=== PATIENT | male | born 1980 | race Caucasian/White ===

== ENCOUNTER 2016-08-19 10:15 | Day surgery (SDC) | payer OTHER ==
[2016-08-19] VITALS (16 sets, daily range): BP systolic 96–133; BP diastolic 58–88; PULSE 60–95; RESP 11–23; Ht 182.9 cm; Wt 81.6 kg
[~2016-08-19] VITALS: Ht 182.9 cm; Wt 81.6 kg
[~2016-08-19 10:15] MED LIST: CEFAZOLIN 1 GM INJ ONE
[2016-08-19 11:22] LABS: ADD SCAN DIFF NO
[2016-08-19 11:24] LABS: BASOPHILS % 0.4 % (0.0-2.0); EOSINOPHILS # 0.1 10^3/ul (0.0-0.5); EOSINOPHILS % 2.6 % (0.0-7.0); HEMOGLOBIN 15.8 g/dl (14.0-18.0); LYMPHOCYTES # 1.6 10^3/ul (0.8-2.9); LYMPHOCYTES % 34.2 % (15.0-51.0); MEAN CORPUSCULAR HGB CONC 32.9 g/dl (32.0-37.0); MEAN CORPUSCULAR VOLUME 85.1 fl (82.0-101.0); MEAN PLATELET VOLUME 11.5 fl (7.4-10.4); MONOCYTE # 0.4 10^3/ul (0.3-0.9); MONOCYTES % 9.3 % (0.0-11.0); NEUTROPHIL # 2.5 10^3/ul (1.6-7.5); NEUTROPHILS % 53.3 % (39.0-77.0); PLATELET COUNT 171 10^3/UL (140-415); RED BLOOD COUNT 5.64 10^6/ul (4.70-6.10); RED CELL DISTRIBUTION WIDTH 12.2 % (11.5-14.5); WHITE BLOOD COUNT 4.6 10^3/ul (4.8-10.8)
[2016-08-19 11:46] LABS: INR 1.05; PROTIME 13.7 Sec (12.2-14.2); PT RATIO 1.1
[2016-08-19 11:47] LABS: ALBUMIN 4.8 g/dl (3.3-4.9); ALBUMIN/GLOBULIN RATIO 2.18; PARTIAL THROMBOPLASTIN TIME 30.2 Sec (25.0-35.0)
[2016-08-19] MEDS ORDERED: PROPOFOL 20 ML ONE ×2 (12:02→12:43)
[2016-08-19] MEDS ORDERED: MIDAZOLAM 1 MG/ML 2 ML INJ ONE (12:02)
[2016-08-19] MEDS ORDERED: METOCLOPRAMIDE 10 MG INJ ONE (12:02)
[2016-08-19] MEDS ORDERED: FENTAnyl 50 MCG/ML VIAL ONE (12:02)
[2016-08-19 12:03] LABS: CALCIUM 9.1 mg/dl (8.4-10.2); CREATININE 0.89 mg/dl (0.61-1.24)
--- NOTE | 2016-08-19 12:03 | HP ---
DATE OF ADMISSION: 08/19/2016 HISTORY OF PRESENT ILLNESS: Nasima Butler is a 36-year-old male with a 12 x 13 right renal pelvic stone with mild hydronephrosis and urothelial thickening. The stone is noted to be radiodense. He has been having right flank pain and presents for cystoscopy, right retrograde pyelogram, insertion right ureteral stent, first stage right extracorporeal shockwave lithotripsy. Alternative options including observation, ureteroscopy, percutaneous nephrolithotripsy, nephrolithotomy, staged interve ntion and ESWL were reviewed. He in addition understands that more than 1 procedure will be require d and that a stent will be placed and subsequently removed. Timely removal of the stent, so as to a void encrustation, infection and complications were discussed. Additionally, we have discussed the potential complications of surgery today including pain, infection, obstruction, secondary procedure , anesthetic risks including but not limited to DVT, PE, ME, stroke, and blood clot formation. Octaviano tional complications from the surgery including, but not limited to renal infarction, loss of kidney , hematoma, hematuria, damage to the kidney and the surrounding organs, long-term high blood pressur e and diabetes have all been discussed. After previously discussing all of his options and question s, he would like to proceed with the above approach. PAST MEDICAL HISTORY: Nephrolithiasis. PAST SURGICAL HISTORY: None. FAMILY HISTORY: Mother has kidney stones. SOCIAL HISTORY: Does not smoke, positive social alcohol. ALLERGIES: NO KNOWN DRUG ALLERGIES. CURRENT MEDICATIONS: None. PHYSICAL EXAMINATION: LUNGS: Good breath sounds bilaterally. HEART: Regular rate and rhythm. ABDOMEN: Soft, nondistended, nontender. EXTREMITIES: ____, no CVA tenderness, no masses. IMPRESSION: A 12 x 13 right renal pelvic stone with moderate hydronephrosis and secondary urotheli al thickening. PLAN: Cystoscopy, right retrograde pyelogram, insertion of stent, then first stage right extracorpo real shockwave lithotripsy. How the procedure is performed, potential complications and side effects were reviewed. All questions answered. He would like to proceed. This is a well-informed decisio n. Dictated By: BENNIE GREER/NTS Conf#: [id number] DID#: [id number] CC: BENNIE ROJAS MD;*[facility]*
[2016-08-19] MEDS ORDERED: IOHEXOL 300MG/ML 30 ML BTL ONE (12:11)
[2016-08-19 12:12] LABS: POTASSIUM 3.8 mmol/L (3.5-5.1)
[2016-08-19] MEDS ORDERED: IOHEXOL 300MG/ML 30 ML BTL INJ ONE (12:34)
[2016-08-19] MEDS ORDERED: FUROSEMIDE 20 MG INJ ONE (12:46)
[2016-08-19] MEDS ORDERED: ACETAMINOPHEN 1000MG/100ML IV 100 ML ONE (12:56)
[2016-08-19] MEDS ORDERED: KETOROLAC 30 MG INJ ONE (12:56)
[2016-08-19] MEDS ORDERED: MEPERIDINE 25 MG INJ IV PRN (13:00)
[2016-08-19] MEDS ORDERED: DIPHENHYDRAMINE 50 MG INJ IV PRN (13:00)
[2016-08-19] MEDS ORDERED: ONDANSETRON 4 MG INJ IV PRN (13:00)
[2016-08-19] MEDS ORDERED: METOCLOPRAMIDE 10 MG INJ IV PRN (13:00)
[2016-08-19] MEDS ORDERED: HYDROmorphONE (0.2 MG/ML) 10ML SYG IV PRN ×3 (13:00)
[2016-08-19] MEDS ORDERED: OXYCODONE/ACETAMINOPHEN (5/325) TAB PO PRN ×2 (13:00)
--- NOTE | 2016-08-19 13:26 | PDOCDIS ---
Discharge Instructions CONDITION Patient Condition: Good HOME CARE INSTRUCTIONS: Diet Instructions: Regular ACTIVITY: Activity Restrictions: Slowly Increase Activity FOLLOW UP/APPOINTMENTS Appointments 2 weeks, patient to call office for date and time REFERRALS Other Referrals none OTHER ORDERS: Other Orders: dc to home when awake and stable. does not need to void before discharge SCHOOL/WORK RELEASE May return to School/Work on: Aug 23, 2016 BENNIE ROJAS Aug 19, 2016 13:26
--- NOTE | 2016-08-19 13:56 | OPR ---
DATE OF OPERATION: 08/19/2016 HISTORY: Nasima Butler is a 36-year-old male with a 12 x 13 mm right renal pelvic stone associate d with right flank pain, requesting staged right extracorporeal shock wave lithotripsy with stent. The procedure, alternative, options, pre and postoperative course, importance of timely removal or e xchange of a stent, what encrustation of a stent entails and the potential for secondary as well as additional procedures were reviewed. The pros and cons of all modalities were discussed and he elec christiano to proceed with the above plan PREOPERATIVE DIAGNOSIS: Right renal calculi. POSTOPERATIVE DIAGNOSIS: Right renal calculi. PROCEDURE PERFORMED: Right extracorporeal shock wave lithotripsy, right retrograde pyelogram, inser tion right ureteral stent. SURGEON: Bennie Negrete MD ANESTHESIA: General. DESCRIPTION OF PROCEDURE: The patient was brought into the operating room and placed on the hike lithotripter. He was prepped and draped in usual fashion after anesthesia was induced. A t imeout was undertaken. He received preoperative antibiotic therapy and sequential compression devic es were applied. Fluoroscopy was obtained which demonstrated 12 x 13 radiodense stone overlying the right renal fossa. Rigid cystoscopy was undertaken with a 12-degree, 30-degree and 70-degree angle lens. No abnormalities of the anterior, posterior urethra could be appreciated. The bladder was i nspected in a systematic fashion. No foreign body, bladder stone or tumor could be noted. Bilatera l ureteral orifices were within normal limits. A 5-Egyptian open-ended catheter was advanced up into the level of the upper pole where retrograde dorie logram was undertaken demonstrating the catheter was within the collecting system. A wire was place d up into the upper pole, which then allowed for a 28 cm 6-Egyptian double-J ureteral stent to be inse rted. The proximal aspect coiling within the renal pelvis and the distal aspect coiling within the bladder. The coil encompassed the stone. Proper position was confirmed with direct vision fluorosc opy and a KUB. A tapered string was attached to the distal end of the stent. The cystoscope was th en removed. The patient was repositioned, which allowed for right extracorporeal shock wave lithotripsy with ini tial energy setting of 1, which was progressively increased to 7, a pause was taken at 2 minut es. A total of 2400 shocks were delivered with intermittent fluoroscopy being utilized in the AP an d lateral projection. Additionally, the patient was repositioned so that the stone burden would rem ain in the proper focal point. He tolerated the procedure well. At the end of procedure, excellent fragmentation was noted. There were no noted complications. He returned to the recovery room in stable condition and discharged to home on Pyridium 200 mg p.o. t.i.d. p.r.n., dispense #30, 1 refill, Bactrim-DS 1 tab p.o. b.i.d. for 3 days' time, and [place] 5 one to two tabs p.o. q.6h, dispense #40, no refill. He will follow up in the office in 2 weeks' t jonna at which point a KUB with obliques will be obtained for possible then stent removal versus stage d intervention. Importance of followup additionally reviewed. Dictated By: BENNIE GREER/YUSRA Conf#: [id number] DID#: [id number]
== END 2016-08-19 15:33 | disposition home or self-care (01) ==
LOC: SDS 10:15
PROVIDERS: ATTEND Urology
DX: N20.0 Calculus of kidney (principal)
CPT/HCPCS: 50590; 80053; 85025; 85610; 85651; 85730; C2617; J0131; J0690; J1170; J1885; J1940; J2250; J2405; J2765; J3010; Q9967; Z7512; Z7610

== ENCOUNTER 2016-09-01 05:11 | Emergency (ER) | payer OTHER ==
[~2016-09-01] VITALS: Ht 170.2 cm; Wt 83.5 kg
[2016-09-01 05:17] VITALS: Ht 170.2 cm; Wt 83.5 kg
[2016-09-01] MEDS ORDERED: SOD CHLORIDE 0.9% 1,000 ML IV STA (05:30)
[2016-09-01] MEDS ORDERED: morphine 4 MG/ML VIAL IV STA ×3 (05:30→11:15)
[2016-09-01] MEDS ORDERED: ONDANSETRON 4 MG INJ IV STA (05:30)
[2016-09-01 05:50] VITALS: TEMP 98.1
[2016-09-01 06:04] LABS: ADD SCAN DIFF NO
[2016-09-01 06:09] LABS: BASOPHILS % 0.4 % (0.0-2.0); EOSINOPHILS # 0.3 10^3/ul (0.0-0.5); EOSINOPHILS % 3.8 % (0.0-7.0); HEMATOCRIT 44.8 % (42.0-52.0); HEMOGLOBIN 15.1 g/dl (14.0-18.0); LYMPHOCYTES # 2.6 10^3/ul (0.8-2.9); LYMPHOCYTES % 37.6 % (15.0-51.0); MEAN CORPUSCULAR HEMOGLOBIN 28.9 pg (29.0-33.0); MEAN CORPUSCULAR HGB CONC 33.7 g/dl (32.0-37.0); MEAN CORPUSCULAR VOLUME 85.8 fl (82.0-101.0); MEAN PLATELET VOLUME 11.4 fl (7.4-10.4); MONOCYTE # 0.6 10^3/ul (0.3-0.9); MONOCYTES % 8.5 % (0.0-11.0); NEUTROPHIL # 3.4 10^3/ul (1.6-7.5); NEUTROPHILS % 49.4 % (39.0-77.0); PLATELET COUNT 230 10^3/UL (140-415); RED BLOOD COUNT 5.22 10^6/ul (4.70-6.10); RED CELL DISTRIBUTION WIDTH 12.1 % (11.5-14.5); WHITE BLOOD COUNT 6.8 10^3/ul (4.8-10.8)
[2016-09-01 06:34] LABS: ADD UMIC YES; URINE BILIRUBIN (Dip) 1+ (NEGATIVE); URINE BLOOD (Dip) 3+ (NEGATIVE); URINE COLOR AMBER (YELLOW); URINE GLUCOSE (Dip) NEGATIVE (NEGATIVE); URINE KETONES (Dip) NEGATIVE (NEGATIVE); URINE LEUKOCYTE ESTERASE (Dip) 2+ (NEGATIVE); URINE NITRITE (Dip) POSITIVE (NEGATIVE); URINE TOTAL PROTEIN (Dip) 4+ (NEGATIVE); URINE UROBILINOGEN (Dip) 2.0 E.U./dL (0.1-1.0)
[2016-09-01 06:40] LABS: ALBUMIN 4.5 g/dl (3.3-4.9); ALBUMIN/GLOBULIN RATIO 1.95; BILIRUBIN,INDIRECT 0.4 mg/dl (0-1.1); BILIRUBIN,TOTAL 0.4 mg/dl (0.2-1.3); CALCIUM 9.2 mg/dl (8.4-10.2); CREATININE 1.1 mg/dl (0.61-1.24); POTASSIUM 3.9 mmol/L (3.5-5.1); TOTAL PROTEIN 6.8 g/dl (6.1-8.1)
[2016-09-01 07:02] LABS: ICTOTEST POSITIVE (NEGATIVE); URINE RBCS >200 /HPF (0)
[2016-09-01 07:03] LABS: BACTERIA,URINE OCCASIONAL
--- NOTE | 2016-09-01 08:01 | RADRPT ---
PROCEDURE: Retroperitoneal US. CLINICAL INDICATION: Flank pain TECHNIQUE: Multiple sonographic images of the kidneys and retroperitoneum were obtained. The imag es were reviewed on a PACS workstation. COMPARISON: No prior studies are available for comparison. FINDINGS: The kidneys are normal in size, contour, cortical thickness and cortical echogenicity. The right kidney measures 10.3 cm. The left kidney measures 10.8 cm. There is a 5 mm stone in the right kidney. There is mild right-sided hydronephrosis. There is a stent within the urinary bladder. RPTAT: AA IMPRESSION: Mild right-sided hydronephrosis. 5 mm stone in the right kidney. .Brennen Buenrostro MD, Date Time Electronically viewed and signed by .Brennen Buenrostro MD, MD on 09/01/2016 08:01 .S/
[2016-09-01] MEDS ORDERED: HYDR-906 PO (08:32)
--- NOTE | 2016-09-01 09:14 | RADRPT ---
PROCEDURE: XR Abdomen. CLINICAL INDICATION: Right pelvic pain TECHNIQUE: 4 views of the abdomen are available for review, including bilateral obliques. COMPARISON: None. FINDINGS: Right ureteral stent is identified in normal position. No gross evidence of urinary calculus is tai ntified. Moderate retained fecal material is suggestive of constipation. There is no evidence of b owel obstruction. The osseous structures are unremarkable. IMPRESSION: 1. Right ureteral stent is identified in normal position. No gross evidence of urinary calculus is seen. 2. Moderate retained fecal material is suggestive of constipation. RPTAT: HDWR .Francisco Sweeney MD, MD Date Time Electronically viewed and signed by .Francisco Sweeney MD, on 09/01/2016 09:14 .R/
[2016-09-01 09:45] VITALS: BP 116/78; PULSE 82; RESP 20
[2016-09-01] MEDS ORDERED: MAGN296S40 PO (11:25)
[2016-09-01] MEDS ORDERED: POLY17PO6 PO (11:25)
[2016-09-01] MEDS ORDERED: CEFTRIAXONE 1 GM/50 ML (PMX) 50 ML IVPB ONE (11:30)
--- NOTE | 2016-09-01 11:49 | ERD ---
ER Documentation Chief Complaint Date/Time DATE: 09/01/16 TIME: 11:34 Chief Complaint sp R ureteral stent placemet retrograde pyelogram 12 days ago, abd pain HPI This 36-year-old male comes for continued pain and hematuria after stent placement on the first. He had had a large kidney stone at that time and received lithotripsy as well as stent placement. He denies any fevers and chills but does have pain that is not fully controlled by taking 4 Percocets per day. The pain is along his right flank. ROS All systems reviewed and are negative except as per history of present illness. Medications Home Meds Active Scripts Polyethylene Glycol* (Miralax*) 17 Gm Powd.pack, 17 GM PO DAILY, #7 Prov:SANTIAGO CARTER 09/01/16 Magnesium Citrate* (Magnesium Citrate*) 296 Ml Solution, 296 ML PO ONCE, #1 BOTTLE Prov:GATO CARTERIMCHAEL RUANO 09/01/16 Reported Medications Hydrocodone/Acetaminophen ([place] 5-325 Tablet) 1 Each Tablet, 1-2 EACH PO Q6 Y for PAIN, TAB 09/01/16 Allergies Allergies: Coded Allergies: No Known Allergies (Verified Allergy, Unknown, 09/01/16) PMhx/Soc Medical and Surgical Hx: pt denies Medical Hx History of Surgery: Yes (PYLOGRAM WITH STENT PLACEMENT) Anesthesia Reaction: No Hx Neurological Disorder: No Hx Respiratory Disorders: No Hx Cardiac Disorders: No Hx Psychiatric Problems: No Hx Miscellaneous Medical Probl: No Hx Alcohol Use: No Hx Substance Use: No Hx Tobacco Use: No Smoking Status: Never smoker Physical Exam Vitals Vital Signs Date Time Temp Pulse Resp B/P Pulse Ox O2 Delivery O2 Flow Rate FiO2 09/01/16 09:45 82 20 116/78 100 Room Air 09/01/16 05:50 98.1 78 20 120/65 100 Room Air 09/01/16 05:17 98.5 92 20 210/87 97 Physical Exam Const: [] Mild distress, appears uncomfortable Head: Atraumatic Eyes: Normal Conjunctiva ENT: Normal External Ears, Nose and Mouth. Neck: Full range of motion..~ No meningismus. Resp: Clear to auscultation bilaterally Cardio: Regular rate and rhythm, no murmurs Abd: Soft, very mild suprapubic tenderness without guarding or rebound, non distended. Normal bowel sounds Skin: No petechiae or rashes Back: No midline or right flank tenderness to percussion. Ext: No cyanosis, or edema Neur: Awake and alert and oriented 3, no focal deficit Psych: Normal Mood and Affect Result Diagram: 09/01/16 0550 09/01/16 0550 Results 24 hrs Laboratory Tests Test 09/01/16 05:50 White Blood Count 6.810^3/ul Red Blood Count 5.2210^6/ul Hemoglobin 15.1g/dl Hematocrit 44.8% Mean Corpuscular Volume 85.8fl Mean Corpuscular Hemoglobin 28.9pg Mean Corpuscular Hemoglobin Concent 33.7g/dl Red Cell Distribution Width 12.1% Platelet Count 61923^3/UL Mean Platelet Volume 11.4fl Neutrophils % 49.4% Lymphocytes % 37.6% Monocytes % 8.5% Eosinophils % 3.8% Basophils % 0.4% Nucleated Red Blood Cells % 0.0/100WBC Neutrophils # 3.410^3/ul Lymphocytes # 2.610^3/ul Monocytes # 0.610^3/ul Eosinophils # 0.310^3/ul Basophils # 0.010^3/ul Nucleated Red Blood Cells # 0.010^3/ul Urine Color ELENA Urine Clarity SLIGHTLY CLOUDY Urine pH 6.0 Urine Specific [place] 1.025 Urine Ketones NEGATIVE Urine Nitrite POSITIVE Urine Bilirubin 1+ Urine Ictotest POSITIVE Urine Urobilinogen 2.0 E.U./dL Urine Leukocyte Esterase 2+ Urine Microscopic RBC >200/HPF Urine Microscopic WBC 5-10/HPF Urine Calcium Oxalate Crystals FEW Urine Bacteria OCCASIONAL Urine Hemoglobin 3+ Urine Glucose NEGATIVE% Urine Total Protein 4+ Sodium Level 145mmol/L Potassium Level 3.9mmol/L Chloride Level 110mmol/L Carbon Dioxide Level 26mmol/L Anion Gap 13 Blood Urea Nitrogen 13mg/dl Creatinine 1.10mg/dl Glucose Level 103mg/dl Calcium Level 9.2mg/dl Total Bilirubin 0.4mg/dl Direct Bilirubin 0.00mg/dl Indirect Bilirubin 0.4mg/dl Aspartate Amino Transf (AST/SGOT) 22IU/L Alanine Aminotransferase (ALT/SGPT) 34IU/L Alkaline Phosphatase 55IU/L Total Protein 6.8g/dl Albumin 4.5g/dl Globulin 2.30g/dl Albumin/Globulin Ratio 1.95 Lipase 194U/L Current Medications Medications (Trade) Dose Ordered Sig/Jose Route PRN Reason Start Time Stop Time Status Last Admin Dose Admin Sodium Chloride (NS) 1,000 ml @ 1,000 mls/hr Q1H STAT IV 09/01/16 05:30 09/01/16 06:29 DC 09/01/16 05:49 Morphine Sulfate (morphine) 4 mg ONCE STAT IV 09/01/16 05:30 09/01/16 05:31 DC 09/01/16 05:49 Ondansetron HCl (Zofran Inj) 4 mg ONCE STAT IV 09/01/16 05:30 09/01/16 05:31 DC 09/01/16 05:49 Morphine Sulfate (morphine) 4 mg ONCE STAT IV 09/01/16 07:31 09/01/16 07:32 DC 09/01/16 07:40 Morphine Sulfate 4 mg 4 mg ONCE STAT IV 09/01/16 11:15 09/01/16 11:16 DC 09/01/16 11:28 Ceftriaxone Sodium (Rocephin) 50 ml @ 100 mls/hr ONCE ONCE IVPB 09/01/16 11:30 09/01/16 11:59 09/01/16 11:28 Procedures/MDM Continued pain after stent placement. Also with hematuria. No signs of significant obstruction. 5 mm stone. Stent is in place on imaging. Patient has no signs of acute infection in his hemoglobin is stable in spite of the hematuria. I reviewed the patient's EMR and saw the Dr. Rojas had performed the surgery and had wanted KUBs with obliques in order to see stent placement 2 weeks after the procedure. I had ordered this. Patient was given a liter of fluid as well as to 4 mg doses of morphine does control his pain. I spoke with Dr. Rojas regarding the results of the patient's case he stated that he could see the patient in the office in 2 hours at 1330 today. He requested that I put the images on a CD and give the patient a gram of Rocephin. I have done this and am discharging with instructions to see Dr. Rojas today. KUB x-ray with obliques interpretation: Renal stent in place, no stones visible in ureter Renal ultrasound interpretation: Mild hydronephrosis with 5 mm stone and stent in place. No significant hydronephrosis. Departure Diagnosis: Primary Impression: Abdominal pain Additional Impressions: Hematuria Complication of urinary stent Condition: Stable Patient Instructions: Abdominal Pain, Hematuria Referrals: BENNIE ROJAS Additional Instructions: Follow up in Caden's office today at 1:30. SANTIAGO CARTER DO Sep 01, 2016 11:46
== END 2016-09-01 12:14 | disposition home or self-care (01) ==
LOC: E/R 05:11
DX: R10.30 Lower abdominal pain, unspecified (principal); R31.9 Hematuria, unspecified; T83.192A Other mechanical complication of indwelling ureteral stent, initial encounter; Y73.8 Miscellaneous gastroenterology and urology devices associated with adverse incidents, not elsewhere classified
CPT/HCPCS: 36415; 74000; 76775; 80053; 81001; 83690; 85025; 87086; 96374; 96375; 96376; J0696; J2270; J2405; J7030; Z7502